=== PATIENT | female | born 2005 | race Caucasian/White ===

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

== ENCOUNTER 2024-12-01 10:43 | Emergency (ER) | payer OTHER ==
[~2024-12-01] VITALS: Ht 154.9 cm; Wt 65.8 kg
[2024-12-01 10:59] VITALS: BP 121/77
[2024-12-01] MEDS ORDERED: Rabies Vaccine (Pcec)/Pf 1 mL 2.5 Unit Kit IM ONE (11:05)
== END 2024-12-01 11:30 | disposition home or self-care (01) ==
LOC: ER 10:43
DX: Z23 Encounter for immunization (principal); Z20.3 Contact with and (suspected) exposure to rabies
CPT/HCPCS: 90471; 99281